=== PATIENT | female | born 1995 | race Two or more races ===

== ENCOUNTER 2019-12-06 12:50 | Emergency (ER) | payer SELFPAY ==
[~2019-12-06] VITALS: Ht 172.7 cm; Wt 80.0 kg
[2019-12-06 15:16] VITALS: BP 116/64
== END 2019-12-06 15:19 | disposition home or self-care (01) ==
LOC: ER 12:50
DX: Z03.818 Encounter for observation for suspected exposure to other biological agents ruled out (principal); Z71.89 Other specified counseling
CPT/HCPCS: 87804; 99283

== ENCOUNTER 2021-07-26 01:42 | Observation (INO) | payer MEDICAID, SELFPAY ==
[~2021-07-26] VITALS: Ht 172.7 cm; Wt 90.7 kg
[2021-07-26] MEDS ORDERED: PREN1COM12 MT (03:21)
== END 2021-07-26 03:30 | disposition home or self-care (01) ==
LOC: 8 EST LDRP 01:42
PROVIDERS: ADMIT Obstetrics & Gynecology; ATTEND Obstetrics & Gynecology
DX: O26.893 Other specified pregnancy related conditions, third trimester (principal); R10.9 Unspecified abdominal pain; O99.891 Other specified diseases and conditions complicating pregnancy; M54.9 Dorsalgia, unspecified; O62.9 Abnormality of forces of labor, unspecified; Z3A.34 34 weeks gestation of pregnancy
CPT/HCPCS: 59025; G0378; 99281

== ENCOUNTER 2021-08-21 15:24 | Observation (INO) | payer MEDICAID ==
[~2021-08-21] VITALS: Ht 172.7 cm; Wt 94.3 kg
[~2021-08-21 15:24] MED LIST: PREN1COM12 MT
== END 2021-08-21 18:00 | disposition home or self-care (01) ==
LOC: 8 EST LDRP 15:24
PROVIDERS: ADMIT Obstetrics & Gynecology; ATTEND Obstetrics & Gynecology
DX: O34.63 Maternal care for abnormality of vagina, third trimester (principal); O62.9 Abnormality of forces of labor, unspecified; Z3A.38 38 weeks gestation of pregnancy
CPT/HCPCS: 59025; 76805; 76818; G0378; 99281

== ENCOUNTER 2021-09-01 11:34 | Observation (INO) | payer MEDICAID ==
[~2021-09-01] VITALS: Ht 172.7 cm; Wt 94.3 kg
[2021-09-07] MEDS ORDERED: AZIT500T3 MT (08:01)
[2021-09-07] MEDS ORDERED: FERR-63 PO (08:01)
[2021-09-07] MEDS ORDERED: IBUP-2030 PO (08:01)
== END 2021-09-01 13:00 | disposition home or self-care (01) ==
LOC: 8 EST LDRP 11:34
PROVIDERS: ADMIT Obstetrics & Gynecology; ATTEND Obstetrics & Gynecology
DX: O48.0 Post-term pregnancy (principal); Z3A.40 40 weeks gestation of pregnancy
CPT/HCPCS: 59025; 99281; G0378

== ENCOUNTER 2023-11-25 14:13 | Emergency (ER) | payer MEDICAID ==
[~2023-11-25] VITALS: Ht 172.7 cm; Wt 81.0 kg
[~2023-11-25 14:13] MED LIST changes: +AZIT500T MT; +FERR-63 PO; +IBUP-2030 PO
[2023-11-25 14:30] VITALS: O2SAT 98
[2023-11-25 16:25] LABS: BASOPHILS % 0.3 % (0.0-2.0); EOSINOPHILS % 0.2 % (0.0-5.0); HEMOGLOBIN. 13.3 g/dL (12.0-16.0); LYMPHOCYTES % 21.7 % (20.0-50.0); MEAN CORPUSCULAR HEMOGLOBIN 28.6 pg (28.0-32.0); MEAN CORPUSCULAR HGB CONC 33.2 g/dL (31.0-37.0); MEAN CORPUSCULAR VOLUME 86.1 fL (81.0-99.0); MEAN PLATELET VOLUME 9.1 fl (7.4-10.4); MONOCYTES % 6.2 % (2.0-8.0); NEUTROPHILS % 71.6 % (40.0-76.0); PLATELET 236 x1000/uL (130-400); RED BLOOD CELL COUNT 4.64 mill/uL (4.2-5.4); WHITE BLOOD COUNT 10.6 x1000/uL (4.5-11.0)
[2023-11-25 16:38] LABS: HCG SCREEN NEGATIVE
[2023-11-25 16:39] LABS: ALANINE AMINOTRANSFERASE 25 IU/L (10-49); ALBUMIN 4.6 g/dL (3.2-4.8); ASPARTATE AMINOTRANSFERASE 31 IU/L (<34); BILIRUBIN TOTAL 0.4 mg/dL (0.1-1.0); CARBON DIOXIDE 28 mEq/L (21-32); CHLORIDE 106 mEq/L (98-107); CREATININE 0.7 mg/dL (0.6-1.0); GLUCOSE 89 mg/dL (70-105); POTASSIUM 3.7 mEq/L (3.5-5.1); PROTEIN TOTAL 7.8 g/dL (6.0-8.3); SODIUM 139 mEq/L (136-145); UREA NITROGEN BLOOD 14 mg/dL (9-23)
[2023-11-25] MEDS: DIPHENHYDRAMINE 50MG/ML VIAL IM ONE (16:56)
[2023-11-25] MEDS: KETOROLAC 60MG/2ML VIAL IM STA (16:56)
[2023-11-25] MEDS: MECLIZINE 25MG TABLET PO ONE (16:57)
[2023-11-25] MEDS: METOCLOPRAMIDE HCL 10MG/2ML VIAL IM ONE (16:57)
[2023-11-25] MEDS ORDERED: LORA10TA7 MT (18:11)
[2023-11-25 18:43] VITALS: BP 110/54; PULSE 60; RESP 18; TEMP 98.5
== END 2023-11-25 19:39 | disposition home or self-care (01) ==
LOC: ER 14:13
DX: J32.9 Chronic sinusitis, unspecified (principal); G43.909 Migraine, unspecified, not intractable, without status migrainosus
CPT/HCPCS: 99285; 70450; 80053; 81025; 84703; 85025; 36415; 96372; 70480; J8597; J1200; J1885; J2765